=== PATIENT | female | born 1985 | race Two or more races ===

== ENCOUNTER → 2017-12-06 | Outpatient (CLI) | payer OTHER ==
[2017-12-06 14:37] LABS: BASO % 0.3 % (0.0-1.0); EOS # 0.1 10^3/uL (0.0-0.50); EOS % 1.2 % (0.0-3.0); HEMATOCRIT 43.2 % (36.0-47.0); HEMOGLOBIN 14.5 g/dl (12.0-16.0); IMMATURE GRANULOCYTE % 0.3 % (0-0); LYMPH % 20.9 % (24.0-44.0); MEAN CORPUSCULAR HEMOGLOBIN 30.9 pg (27.0-33.0); MEAN CORPUSCULAR HGB CONC 33.6 g/dl (32.0-36.5); MEAN CORPUSCULAR VOLUME 91.9 fl (80.0-96.0); MONO # 0.4 10^3/uL (0.0-0.8); MONO % 4.2 % (0.0-5.0); NEUTROPHILS # 6.9 10^3/uL (1.8-7.7); NEUTROPHILS % 73.1 % (36.0-66.0); RED CELL DISTRIBUTION WIDTH 12.2 % (11.5-14.5); WHITE BLOOD COUNT 9.5 10^3/uL (4.0-10.0)
[2017-12-06 14:56] LABS: RUBELLA IgG QUALITATIVE IMMUNE (IMMUNE)
[2017-12-06 14:58] LABS: HBsAg Prenatal NEGATIVE (NEGATIVE)
[2017-12-06 15:12] LABS: POS COUNT POS FLAG
[2017-12-06 15:13] LABS: PLATELET COUNT, AUTOMATED 246 10^3/uL (150-450)
[2017-12-06 15:25] LABS: HEPATITIS C VIRUS ABY INDEX < 0.0 INDEX (<0.8)
[2017-12-06 15:25] LABS: HIV 1&2 SCREEN CENTAUR NEGATIVE (NEGATIVE)
[2017-12-06 16:02] LABS: CHLAMYDIA DNA AMPLIFICATION NEGATIVE (NEGATIVE); GC DNA AMPLIFICATION NEGATIVE (NEGATIVE)
== END ==
LOC: M SMT 09:56
DX: Z13.79 Encounter for other screening for genetic and chromosomal anomalies (principal); Z3A.08 8 weeks gestation of pregnancy
CPT/HCPCS: 86762

== ENCOUNTER → 2018-01-03 | Outpatient (CLI) | payer OTHER | LOC: M SMT 10:24 | DX: Z36.0 Encounter for antenatal screening for chromosomal anomalies (principal) | CPT/HCPCS: 36415 ==

== ENCOUNTER → 2018-01-24 | Outpatient (CLI) | payer OTHER | LOC: M RAD 09:11 | DX: Z34.82 Encounter for supervision of other normal pregnancy, second trimester (principal); Z3A.19 19 weeks gestation of pregnancy | CPT/HCPCS: 76811 ==

== ENCOUNTER → 2018-02-12 | Outpatient (CLI) | payer OTHER | LOC: M RAD 08:55 | DX: Z36.9 Encounter for antenatal screening, unspecified (principal); Z3A.22 22 weeks gestation of pregnancy | CPT/HCPCS: 76816 ==

== ENCOUNTER → 2018-03-13 | Outpatient (CLI) | payer OTHER ==
[2018-03-13 14:23] LABS: HEMATOCRIT 38.7 % (36.0-47.0); HEMOGLOBIN 12.5 g/dl (12.0-15.5); MEAN CORPUSCULAR HEMOGLOBIN 30.6 pg (27.0-33.0); MEAN CORPUSCULAR HGB CONC 32.3 g/dl (32.0-36.5); MEAN CORPUSCULAR VOLUME 94.9 fl (80.0-96.0); PLATELET COUNT, AUTOMATED 241 10^3/uL (150-450); RED BLOOD COUNT 4.08 10^6/uL (4.00-5.40); RED CELL DISTRIBUTION WIDTH 12.8 % (11.5-14.5); WHITE BLOOD COUNT 11.2 10^3/uL (4.0-10.0)
[2018-03-13 14:36] LABS: GLUCOSE CHALLENGE TEST 1 HOUR 154 MG/DL (LESS THAN 140)
== END ==
LOC: M SMT 09:41
DX: Z34.82 Encounter for supervision of other normal pregnancy, second trimester (principal)
CPT/HCPCS: 82950

== ENCOUNTER → 2018-03-19 | Outpatient (CLI) | payer OTHER ==
[2018-03-19 07:55] LABS: GLUCOSE, FASTING 85 MG/DL (LESS THAN 95)
[2018-03-19 08:50] LABS: 1 HR GLUCOSE 139 MG/DL (LESS THAN 180)
[2018-03-19 10:23] LABS: 2 HR GLUCOSE 105 MG/DL (LESS THAN 155)
[2018-03-19 11:04] LABS: 3 HR GLUCOSE 88 MG/DL (LESS THAN 140)
== END ==
LOC: M LAB 07:17
DX: Z34.92 Encounter for supervision of normal pregnancy, unspecified, second trimester (principal)
CPT/HCPCS: 82951

== ENCOUNTER → 2018-05-21 | Outpatient (REF) | payer OTHER | LOC: M LAB REF 18:17 | DX: Z34.83 Encounter for supervision of other normal pregnancy, third trimester (principal); Z36.85 Encounter for antenatal screening for Streptococcus B | CPT/HCPCS: 87081 ==

== ENCOUNTER 2018-06-26 05:34 | Inpatient (IN) | payer OTHER ==
[2018-06-26] MEDS: LR 1,000 ML IV (00:30)
[2018-06-26 06:36] LABS: HEMATOCRIT 39.8 % (36.0-47.0); HEMOGLOBIN 13.7 g/dl (12.0-15.5); MEAN CORPUSCULAR HEMOGLOBIN 31.1 pg (27.0-33.0); MEAN CORPUSCULAR HGB CONC 34.4 g/dl (32.0-36.5); MEAN CORPUSCULAR VOLUME 90.2 fl (80.0-96.0); PLATELET COUNT, AUTOMATED 225 10^3/uL (150-450); RED BLOOD COUNT 4.41 10^6/uL (4.00-5.40); RED CELL DISTRIBUTION WIDTH 13.2 % (11.5-14.5); WHITE BLOOD COUNT 9.1 10^3/uL (4.0-10.0)
[2018-06-26] MEDS: LACTATED RINGER'S 1000 ML IV (11:34)
[2018-06-26] MEDS: miSOPROStol 50 MCG 1/2 TAB (S0191) SL ×2 (12:11→16:55)
[2018-06-27] MEDS ORDERED: OXYTOCIN DRIP 30 UNITS in APPROPRIATE DILUENT 1 EA IV
[2018-06-27] MEDS ORDERED: FENTANYL 2MCG/ML ROPIVACAINE 0.2% IN 0.9% NACL 200ML IVBAG As Ordered (00:10)
[2018-06-27] MEDS ORDERED: EPIDURAL/PCA KEYS XX (00:30)
[2018-06-27] MEDS ORDERED: diphenhydrAMINE INJ 50MG/ML VIAL (J1200) IV (00:30)
[2018-06-27] MEDS ORDERED: FENTANYL/ROPIVACAINE/NACL BAG 200 ML EPIDURAL (00:30)
[2018-06-27] MEDS ORDERED: ePHEDrine SULFATE 25 MG/5 ML(5MG/ML) SYRINGE IV (00:30)
[2018-06-27] MEDS ORDERED: EPIDURAL COMMENT XX (00:30)
[2018-06-27] MEDS ORDERED: ONDANSETRON 4MG/2ML VIAL (J2405) IV ×3 (00:30→17:00)
[2018-06-27] MEDS ORDERED: NALOXONE INJ 0.4 MG/1 ML VIAL (J2310) IV ×3 (00:30→16:00)
[2018-06-27] MEDS ORDERED: REFRIGERATOR IV KEYS XX (00:30)
[2018-06-27] MEDS ORDERED: LACTATED RINGER'S 1000 ML IV (00:30)
[2018-06-27] MEDS: ACETAMINOPHEN 500 MG TAB PO (07:01)
[2018-06-27] MEDS: LR 1,000 ML IV ×4 (12:40→19:40)
[2018-06-27] MEDS ORDERED: ceFAZolin 2 GM/D5W 50 ML IV BAG (J0690 PER 500MG) As Ordered (14:58)
[2018-06-27] MEDS ORDERED: BICITRA 30ML SOLN UDC As Ordered (14:58)
[2018-06-27] MEDS: LACTATED RINGER'S 1000 ML IV (15:06)
[2018-06-27] MEDS ORDERED: LR 1,000 ML IV (15:06)
[2018-06-27] MEDS: BICITRA 30ML SOLN UDC PO (15:20)
[2018-06-27] MEDS ORDERED: OXYTOCIN INJ 10 UNITS/ML VIAL (J2590) As Ordered (15:51)
[2018-06-27] MEDS ORDERED: LIDOCAINE 2% W/EPIN INJ 20ML **PRES FREE As Ordered (15:51)
[2018-06-27] MEDS ORDERED: SODIUM BICARBONATE 8.4% INJ 50MEQ 50 ML VIAL As Ordered (15:51)
[2018-06-27] MEDS ORDERED: MORPHINE PRES-FREE INJ 10 MG/10 ML VIAL (J2274) As Ordered (15:51)
[2018-06-27] MEDS ORDERED: KETOROLAC 60 MG/2 ML VIAL (J1885) As Ordered (15:51)
[2018-06-27] MEDS ORDERED: ONDANSETRON 4MG/2ML VIAL (J2405) As Ordered (15:57)
[2018-06-27] MEDS ORDERED: PHENYLephrine HCL 500 MCG/5 ML (100MCG/ML) SYRINGE (J2370) As Ordered (15:57)
[2018-06-27] MEDS ORDERED: METOCLOPRAMIDE INJ 10MG/2ML VIAL (J2765) IV ×2 (16:00→17:00)
[2018-06-27] MEDS ORDERED: NALBUPHINE HCL 10 MG/ML AMP (J2300) IV (16:00)
[2018-06-27] MEDS ORDERED: DOCUSATE SODIUM 100 MG CAP PO (16:45)
[2018-06-27] MEDS ORDERED: PERCOCET 5MG/325MG TAB PO ×3 (16:45→17:00)
[2018-06-27] MEDS ORDERED: MEASLES,MUMPS,RUBELLA VACCINE INJ (MMR-II) (90707) SC (16:45)
[2018-06-27] MEDS ORDERED: RHOGAM 300 MCG (1500 IU) INJ (J2790) IM (16:45)
[2018-06-27] MEDS ORDERED: fentaNYL 100 MCG/2 ML INJECTION (J3010) IV (17:00)
[2018-06-27] MEDS ORDERED: MEPERIDINE INJ 25 MG/ML VIAL (J2175) IV (17:00)
[2018-06-27] MEDS: KETOROLAC 30 MG/ML VIAL (J1885) IV (22:07)
[2018-06-27] MEDS: ONDANSETRON 4MG/2ML VIAL (J2405) IV (22:07)
[2018-06-28] MEDS: PROMETHAZINE INJ 25 MG/ML VIAL (J2550) IV (02:33)
[2018-06-28] MEDS: KETOROLAC 30 MG/ML VIAL (J1885) IV ×2 (04:08→10:49)
[2018-06-28] MEDS: PRENATAL VITAMINS CHEWABLE TABLET PO (08:22)
[2018-06-28 10:13] LABS: HEMATOCRIT 30.4 % (36.0-47.0); HEMOGLOBIN 10.3 g/dl (12.0-15.5); MEAN CORPUSCULAR HEMOGLOBIN 31.5 pg (27.0-33.0); MEAN CORPUSCULAR HGB CONC 33.9 g/dl (32.0-36.5); PLATELET COUNT, AUTOMATED 157 10^3/uL (150-450); RED BLOOD COUNT 3.27 10^6/uL (4.00-5.40); RED CELL DISTRIBUTION WIDTH 13.4 % (11.5-14.5); WHITE BLOOD COUNT 16.3 10^3/uL (4.0-10.0)
[2018-06-28] MEDS: IBUPROFEN 800 MG TAB PO (17:41)
[2018-06-29] MEDS: IBUPROFEN 800 MG TAB PO ×2 (01:50→09:14)
[2018-06-29] MEDS: PRENATAL VITAMINS CHEWABLE TABLET PO (09:14)
== END 2018-06-29 15:10 | disposition home or self-care (01) | DRG 540 ==
LOC: M LDI 05:34 → M OBS 06-27 18:10
PROVIDERS: Obstetrics & Gynecology
PROC: 10D00Z1 Extraction of Products of Conception, Low, Open Approach (ICD-10-PCS; principal; 2018-06-27 15:26)
PROC: 3E0P7GC Introduction of Other Therapeutic Substance into Female Reproductive, Via Natural or Artificial Opening (ICD-10-PCS; 2018-06-27 15:26)
DX: O48.0 Post-term pregnancy (principal); Z3A.41 41 weeks gestation of pregnancy; O62.0 Primary inadequate contractions; O69.82X0 Labor and delivery complicated by other cord entanglement, without compression, not applicable or unspecified; O64.8XX0 Obstructed labor due to other malposition and malpresentation, not applicable or unspecified; Z37.0 Single live birth

== ENCOUNTER 2019-07-02 23:12 | Emergency (ER) | payer BC, OTHER ==
[~2019-07-02] VITALS: Ht 167.6 cm; Wt 84.0 kg
[~2019-07-02 23:12] MED LIST: IBUP-1114 PO; OXYC1TAB23 PO; PRENTAB9 PO
[2019-07-02] MEDS ORDERED: ONDANSETRON 4 MG ORAL DISINTEGRATING TAB (Q0162 PER 1MG) As Ordered ONE (23:49)
[2019-07-03] MEDS ORDERED: ONDANSETRON 4 MG ORAL DISINTEGRATING TAB (Q0162 PER 1MG) PO ONE
[2019-07-03 00:10] LABS: HEMOGLOBIN 14.7 g/dl (12.0-15.5); MEAN CORPUSCULAR HEMOGLOBIN 30.4 pg (27.0-33.0); MEAN CORPUSCULAR HGB CONC 33.4 g/dl (32.0-36.5); MEAN CORPUSCULAR VOLUME 90.9 fl (80.0-96.0); PLATELET COUNT, AUTOMATED 269 10^3/uL (150-450); RED BLOOD COUNT 4.84 10^6/uL (4.00-5.40); WHITE BLOOD COUNT 13.9 10^3/uL (4.0-10.0)
[2019-07-03 00:28] LABS: HCG, SERUM QUALITATIVE NEGATIVE (NEGATIVE)
[2019-07-03 00:34] LABS: ALBUMIN 3.8 GM/DL (3.2-5.2); ALT/SGPT 24 U/L (12-78); BILIRUBIN,TOTAL 0.2 MG/DL (0.2-1.0); BLOOD UREA NITROGEN 13 MG/DL (7-18); CALCIUM LEVEL 9.4 MG/DL (8.5-10.1); CARBON DIOXIDE LEVEL 28 MEQ/L (21-32); CHLORIDE LEVEL 104 MEQ/L (98-107); CREATININE FOR GFR 0.54 MG/DL (0.55-1.30); GLOMERULAR FILTRATION RATE > 60.0 (>60); GLUCOSE, FASTING 114 MG/DL (70-100); POTASSIUM SERUM 3.9 MEQ/L (3.5-5.1); SODIUM LEVEL 139 MEQ/L (136-145); TOTAL PROTEIN 7.4 GM/DL (6.4-8.2)
[2019-07-03 01:29] LABS: BASO % 0.3 % (0.0-1.0); EOS # 0.1 10^3/uL (0.0-0.50); EOS % 0.7 % (0.0-3.0); LYMPH # 2.3 10^3/uL (1.5-4.5); LYMPH % 16.5 % (24.0-44.0); MONO # 0.5 10^3/uL (0.0-0.8); MONO % 3.3 % (0.0-5.0); NEUTROPHILS # 10.9 10^3/uL (1.8-7.7); NEUTROPHILS % 78.8 % (36.0-66.0)
[2019-07-03] MEDS ORDERED: NS 1,000 ML IV ONE (01:30)
[2019-07-03 01:36] LABS: LIPASE 145 U/L (73-393)
[2019-07-03 02:23] LABS: PLATELET ESTIMATE NORMAL (NORMAL)
[2019-07-03] MEDS ORDERED: ONDA4TAB6 PO (04:19)
[2019-07-03 04:31] VITALS: BP 133/77
--- NOTE | 2019-07-03 04:58 | REPVR ---
EXAM: US Abdomen Limited, Right Upper Quadrant EXAM DATE/TIME: 07/03/2019 4:06 AM CLINICAL HISTORY: 34 years old, female; Abdominal pain; Acute; Additional info: Ruq pain TECHNIQUE: Imaging protocol: Real-time ultrasound of the abdomen with image documentation. Examination was focused on the right upper quadrant. COMPARISON: No relevant prior studies available. FINDINGS: Liver: No masses. Gallbladder: Partially contracted. Normal wall thickness measuring 2.9 mm. No gallstone. No pericholecystic fluid. Common bile duct: Normal common bile duct measuring 4.6 mm. Pancreas: The pancreas was sought but partially obscured by gas. Unremarkable as visualized. Right kidney: The right kidney measures 12.2 x 5.5 x 4.8 cm. No hydronephrosis. No mass. IMPRESSION: Partially contracted gallbladder. No gallstones. No pericholecystic fluid. The liver, bile ducts and right kidney are normal. The pancreas was sought but partially obscuring by bowel gas. Unremarkable as visualized. Electronically signed by: Dada Bal On 07/03/2019 04:57:59 AM
== END 2019-07-03 04:39 | disposition home or self-care (01) ==
LOC: M ED 23:12
DX: K82.4 Cholesterolosis of gallbladder (principal); R11.2 Nausea with vomiting, unspecified
CPT/HCPCS: 76705; 80053; 83690; 84703; 85027; 96360; 96361; 99284; Q0162